=== PATIENT | female | born 1935 | race Two or more races ===

== ENCOUNTER 2019-03-10 22:12 | Inpatient (IN) | payer OTHER ==
[~2019-03-10] VITALS: Ht 157.5 cm; Wt 59.0 kg
[~2019-03-10 22:12] MED LIST: ASA81 MG PO; COZAAR25 MG PO; GLIMEPIRIDE1 MG; ISOSORBIDE DINI30 MG PO; LIPITOR20 MG PO; METOPROLOL SUCC25 MG PO
== END 2019-03-12 13:50 | disposition home or self-care (01) | DRG 669 ==
LOC: ER 22:12 → SURG 03-11 08:01 → SEC-K 03-11 08:01 → MEDJ 03-11 13:34 → SURG 03-11 13:48 → SEC-K 03-11 14:13 → SURG 03-11 14:59
PROVIDERS: Urology; ADMIT Internal Medicine
PROC: 30233N1 Transfusion of Nonautologous Red Blood Cells into Peripheral Vein, Percutaneous Approach (ICD-10-PCS; 2019-03-11)
PROC: 0TBB8ZZ Excision of Bladder, Via Natural or Artificial Opening Endoscopic (ICD-10-PCS; principal; 2019-03-11 18:00)
DX: C67.4 Malignant neoplasm of posterior wall of bladder (principal); D62 Acute posthemorrhagic anemia; N93.8 Other specified abnormal uterine and vaginal bleeding; I10 Essential (primary) hypertension; R31.0 Gross hematuria; I25.10 Atherosclerotic heart disease of native coronary artery without angina pectoris; E11.9 Type 2 diabetes mellitus without complications; Z79.4 Long term (current) use of insulin

== ENCOUNTER 2021-10-23 18:30 | Inpatient (IN) | payer OTHER ==
[~2021-10-23] VITALS: Ht 61 cm; Wt 59.0 kg
--- NOTE | 2021-10-23 18:36 | NUR ---
PTE ALERTA Y ORIENTADA X 3 ESFERAS QUIEN REFIERE RAHAT CELULITIS EN PIERNA RT QUE COMENZO CON DOLOR Y TOMASA DESDE EL SABADO,BLAKE MEDICO DE CABECERA LE ADMINISTRO ANTIBIOTICO CHALINO NO MEJORA.PTE REFIERE QUE PROBLEMA EN SI COMENZO EN FEBRERO.
[2021-10-23] MEDS ORDERED: DITROPAN XL5 MG (18:40)
[2021-10-23] MEDS ORDERED: NABUMETONE500 MG (18:40)
--- NOTE | 2021-10-23 20:14 | NUR ---
SE REALIZAN MUESTRAS DE WENDY ADMINISTRACION DE MEDICAMENTOS, CULTIVOS DE WENDY Y SE AL MOMENTO EN ESPERA DE ENTREGAR U/A, SE MANTIENE EN OBSERVACION CON TERAPIA INTRAVENOSA PATENTE. PACIENTE MANEJADO POR JUAN FU.
[2021-10-28] MEDS ORDERED: FOLIC ACID1 MG (10:19)
[2021-10-28] MEDS ORDERED: ISOSORBIDE MONO30 M2 (10:19)
[2021-11-08] MEDS ORDERED: GABAPENTIN300 MG PO (10:23)
[2021-11-08] MEDS ORDERED: GLIMEPIRIDE1 MG PO (10:23)
[2021-11-08] MEDS ORDERED: NABUMETONE500 MG PO (10:23)
[2021-11-08] MEDS ORDERED: PYRIDOXINE HCL100 MG PO (10:23)
[2021-11-08] MEDS ORDERED: INTESTINEX680 M1 PO (10:23)
[2021-11-08] MEDS ORDERED: FOLIC ACID1 MG PO (10:23)
[2021-11-08] MEDS ORDERED: VITAMIN B-121000 MCG PO (10:23)
== END 2021-11-08 20:40 | disposition home or self-care (01) | DRG 603 ==
LOC: ER 18:30 → SURH 10-24 04:19 → MEDJ 10-29 11:13
PROVIDERS: ADMIT Internal Medicine; ATTEND Internal Medicine
PROC: B54DZZZ Ultrasonography of Bilateral Lower Extremity Veins (ICD-10-PCS; principal; 2021-10-24)
PROC: B44HZZZ Ultrasonography of Bilateral Lower Extremity Arteries (ICD-10-PCS; 2021-10-24)
PROC: B246YZZ Ultrasonography of Right and Left Heart using Other Contrast (ICD-10-PCS; 2021-10-26)
PROC: B343ZZ3 Ultrasonography of Right Common Carotid Artery, Intravascular (ICD-10-PCS; 2021-10-26)
PROC: CW1NLZZ Planar Nuclear Medicine Imaging of Whole Body using Gallium 67 (Ga-67) (ICD-10-PCS; 2021-11-02)
PROC: CP1Z1ZZ Planar Nuclear Medicine Imaging of Musculoskeletal System, All using Technetium 99m (Tc-99m) (ICD-10-PCS; 2021-11-02)
DX: L03.115 Cellulitis of right lower limb (principal); I73.9 Peripheral vascular disease, unspecified; E11.628 Type 2 diabetes mellitus with other skin complications; E11.42 Type 2 diabetes mellitus with diabetic polyneuropathy; Z85.51 Personal history of malignant neoplasm of bladder; N93.8 Other specified abnormal uterine and vaginal bleeding; I10 Essential (primary) hypertension; I25.10 Atherosclerotic heart disease of native coronary artery without angina pectoris; R60.0 Localized edema; Z79.4 Long term (current) use of insulin; Z98.62 Peripheral vascular angioplasty status; Z85.41 Personal history of malignant neoplasm of cervix uteri; Z20.822 Contact with and (suspected) exposure to COVID-19

== ENCOUNTER 2022-12-11 16:58 | Emergency (ER) | payer OTHER ==
[~2022-12-11] VITALS: Ht 160 cm; Wt 72.6 kg
[~2022-12-11 16:58] MED LIST changes: +DITROPAN XL5 MG; +FOLIC ACID1 MG; +FOLIC ACID1 MG PO; +GABAPENTIN300 MG PO; +GLIMEPIRIDE1 MG PO; +INTESTINEX680 M1 PO; +ISOSORBIDE MONO30 M2; +NABUMETONE500 MG; +NABUMETONE500 MG PO; +PYRIDOXINE HCL100 MG PO; +VITAMIN B-121000 MCG PO
== END 2022-12-11 20:37 | disposition home or self-care (01) ==
LOC: ER 16:58
PROVIDERS: General Practice
DX: R60.0 Localized edema (principal); E78.00 Pure hypercholesterolemia, unspecified; E03.9 Hypothyroidism, unspecified; I10 Essential (primary) hypertension; I73.89 Other specified peripheral vascular diseases
CPT/HCPCS: 36415; 73030; 96365; 99284; J1940